=== PATIENT | female | born 1960 | race Caucasian/White ===

== ENCOUNTER 2018-08-06 17:30 | Emergency (ER) | payer BC ==
[~2018-08-06] VITALS: Ht 154.9 cm; Wt 65.8 kg
--- OUTSIDE RECORDS SUMMARY | 2018-08-06 17:31 | XMS REPORT | Continuity of Care Document ---
Author Author [facility] Interface Address Unknown Phone Unavailable Problems Problem Status Onset Date Classification Date Reported Comments Source Urinary tract infectious disease 08/17/2016 Diagnosis 08/17/2016 [facility] Medications Medication Details Route Status Patient Instructions Ordering Provider Order Date Source Sulfamethoxazole 800 MG / Trimethoprim 160 MG Oral Tablet [Bactrim] Bactrim DS 800 mg-160 mg tablet Take 1 tablet every 12 hours by oral route as directed for 3 days. Active [facility] Phenazopyridine hydrochloride 200 MG Oral Tablet phenazopyridine 200 mg tablet Take 1 tablet 3 times a day by oral route as needed for 5 days. Active [facility] Allergies, Adverse Reactions, Alerts Substance Category Reaction Severity Reaction type Status Date Reported Comments Source Immunizations Immunization Date Given Site Status Last Updated Comments Source Results Order Name Results Value Reference Range Date Interpretation Comments Source Urinalysis macro (dipstick) panel - Urine COLOR : Yellow 08/17/2016 [facility] Urinalysis macro (dipstick) panel - Urine CLARITY : Clear 08/17/2016 [facility] Urinalysis macro (dipstick) panel - Urine LEUKOCYTES : Trace 08/17/2016 [facility] Urinalysis macro (dipstick) panel - Urine NITRITES : Negative 08/17/2016 [facility] Urinalysis macro (dipstick) panel - Urine UROBILINOGEN : Normal 08/17/2016 [facility] Urinalysis macro (dipstick) panel - Urine PROTEIN : 100 08/17/2016 [facility] Urinalysis macro (dipstick) panel - Urine pH : 7.5 08/17/2016 [facility] Urinalysis macro (dipstick) panel - Urine BLOOD : Moderate 08/17/2016 [facility] Urinalysis macro (dipstick) panel - Urine SPECIFIC GRAVITY : 1.020 08/17/2016 [facility] Urinalysis macro (dipstick) panel - Urine KETONES : Negative 08/17/2016 [facility] Urinalysis macro (dipstick) panel - Urine BILIRUBIN : Negative 08/17/2016 [facility] Urinalysis macro (dipstick) panel - Urine GLUCOSE Negative 08/17/2016 [facility] Vital Signs Vital Sign Value Date Comments Source Diastolic (mm Hg) 80 08/17/2016 [facility] Height 61.5 08/17/2016 [facility] Systolic (mm Hg) 114 08/17/2016 [facility] Weight 145 08/17/2016 [facility] Encounters Location Location Details Encounter Type Encounter Number Reason For Visit Attending Provider ADM Date DC Date Status Source [place] - [facility] - [id number] Lawson, [employer]-C: [address] [place] [place] [address], Ph. [id number] Scarlett Lawson 08/17/2016 [facility] Procedures Procedure Code Date Perfomer Comments Source [facility]
--- OUTSIDE RECORDS SUMMARY | 2018-08-06 17:32 | XMS REPORT | Encounter Summary ---
Author Organization Unknown Address [address] [place] [id number] Phone [phone] Reason for Visit Medical Complaint Instructions 1. Urinary tract infectious disease urinary tract infection in women: care instructions Bactrim DS 800 mg-160 mg tablet phenazopyridine 200 mg tablet urinalysis, dipstick culture, urine Discussion Note Pt is in NAD; Verbalizes understanding of all instructions with no questions at this time. Plan of Care Patient Instructions Recommend proper hydration and frequent urination. Avoid douching, Recommend urinating after sexual intercourse. Take medications as prescribed. Return to clinic or f/u with your PCP within 2-3 days if symptoms worsen as discussed. Reminders Provider Appointments None recorded. Lab Urinalysis, Dipstick 08/17/2016 [facility] Culture, Urine 08/17/2016 [facility] Referral None recorded. Procedures None recorded. Surgeries None recorded. Imaging None recorded. Medications Name Start Date Bactrim DS 800 mg-160 mg tablet Take 1 tablet every 12 hours by oral route as directed for 3 days. phenazopyridine 200 mg tablet Take 1 tablet 3 times a day by oral route as needed for 5 days. Medications Administered None recorded. Vitals Height Weight BMI Blood Pressure 5 ft 1.5 in 145 lbs 27 114/80 Lab Results Date Name Result Description Value Range Status Urinalysis, Dipstick Color : Yellow Clarity : Clear Leukocytes : Trace Nitrites : Negative Urobilinogen : Normal Protein : 100 Ph : 7.5 Blood : Moderate Specific Healy : 1.020 Ketones : Negative Bilirubin : Negative Glucose Negative Allergies Name Reaction Severity Onset NKDA Problems None recorded. Procedures Date Name Performed by Information not available Vaccine List None recorded. Social History Smoking Status Never Smoker Past Encounters 08/17/2016 Urinary Tract Infectious Disease Scarlett Lawson, [facility]-C: [id number] [facility], [place] [address], Ph. History of Present Illness [id number] Reported By: Patient HPI: Location: ; bladder. Quality: pressure, burning. Duration: started last night. Onset/Timing: gradual. Context: no known exposure to STD, no prior history of STDs, sexually active, heterosexual, wipes anterior to posterior, voids after intercourse. Modifying factors ; urinating worsens it. Associated Symptoms: no fever/chills, no flank pain, no jaundice, no blood in the urine, no pain during urination, no vaginal discharge, no blisters on genitals, no rash on genitals, no muscle aches, no headache, burning sensation during urination, urgency, hesitancy, urinary frequency Review of Systems:ROS as noted in the HPI Review of Systems Basic Reported By: Patient Physical Exam Adult Basic, Adult Female Complete, Adult Male Complete Reported By: Patient Constitutional: General Appearance: healthy-appearing, well-nourished, well-developed. Level of Distress: NAD. Ambulation: ambulating normally Psychiatric: Mental Status: active and alert. Orientation: to time, to place, to person Eyes: Lids and Conjunctivae: non-injected Lungs: Respiratory effort: no dyspnea, no tachypnea, no use of accessory muscles, no intercostal retractions. Auscultation: breath sounds normal, good air movement Cardiovascular: Heart Auscultation: RRR, no murmurs Musculoskeletal:: Extremities: no edema Abdomen: Bowel Sounds: normal. Inspection and Palpation: soft, non-distended, no tenderness, no CVA tenderness
[2018-08-06] MEDS ORDERED: CLONIDINE HCL 0.1 MG TAB PO ONE (17:45)
[2018-08-06 18:44] VITALS: BP 145/90
== END 2018-08-06 18:50 | disposition home or self-care (01) ==
LOC: ER 17:30
DX: I10 Essential (primary) hypertension (principal)
CPT/HCPCS: 93005; 99282